=== PATIENT | male | born 1970 | race Caucasian/White ===

== ENCOUNTER 2017-07-26 14:15 | Emergency (ER) | payer MEDICAID ==
[~2017-07-26] VITALS: Ht 193 cm; Wt 115.3 kg
[2017-07-26] MEDS: PROPOFOL 100 ML IV PRN ×4 (14:45→15:51)
[2017-07-26 14:49] LABS: HEMATOCRIT 45.5 % (39.2-51.8); HEMOGLOBIN 15.8 g/dL (13.7-18.0); WHITE BLOOD COUNT 15.3 x10^3/uL (3.4-10)
[2017-07-26 15:00] LABS: DAU SCREEN DISCLAIMER
[2017-07-26] MEDS ORDERED: SUCCINYLCHOLINE 20 MG/ML, 10ML IVPush ONE (15:00)
[2017-07-26] MEDS ORDERED: ETOMIDATE 20 MG/10 ML IV ONE (15:00)
[2017-07-26] MEDS ORDERED: VECURONIUM 10 MG IVPush ONE (15:00)
[2017-07-26 15:01] LABS: ASPARTATE AMINO TRANSFERASE 39 U/L (15-37); BLOOD UREA NITROGEN 16 mg/dL (7-18)
[2017-07-26 15:01] LABS: ABG COLLECTION SITE NOT DOCUMENTED
[2017-07-26 15:09] LABS: ACETAMINOPHEN < 2 mcg/mL (10-30)
[2017-07-26] MEDS ORDERED: PIPERACILLIN/TAZO/PMX 3.375GM 50 ML IVPB ONE (15:30)
[2017-07-26] MEDS ORDERED: MANNITOL 0.25 GM/ML, 50ML IVPush ONE (16:00)
[2017-07-26] MEDS ORDERED: PLEASE ENTER HEIGHT AND WEIGHT MC SCH (16:00)
[2017-07-26] MEDS ORDERED: SODIUM CHLORIDE 0.9%, 500ML IVBOLUS ONE ×2 (16:00→16:30)
[2017-07-26 16:07] VITALS: BP 85/41
== END 2017-07-26 16:46 | disposition short-term general hospital (02) ==
LOC: MERGE 14:15 → ED 15:41
DX: R41.82 Altered mental status, unspecified (principal); R40.20 Unspecified coma; S06.311A Contusion and laceration of right cerebrum with loss of consciousness of 30 minutes or less, initial encounter; W11.XXXA Fall on and from ladder, initial encounter; Y93.89 Activity, other specified; Y92.89 Other specified places as the place of occurrence of the external cause; Y99.8 Other external cause status
CPT/HCPCS: 31500; 36415; 36600; 70450; 71010; 72125; 80053; 80307; 80329; 81001; 82550; 82803; 83605; 85025; 87040; 87070; 87205; 93005; 94002; 96374; 96375; 96376; 99291; J0330; J2150; J2704; J7040; G0479; G0480